=== PATIENT | male | born 1980 | race Caucasian/White ===

== ENCOUNTER → 2017-01-11 | Outpatient (CLI) | payer BC ==
[2017-01-11 08:26] LABS: BASO % 0.7 % (0.0-1.0); EOS # 0.2 K/mm3 (0.0-0.50); EOS % 2.4 % (0.0-3.0); LARGE UNSTAINED CELL # 0.1 K/mm3 (0.0-0.4); LARGE UNSTAINED CELL % 1.2 % (0.0-4.0); LYMPH # 1.6 K/mm3 (1.5-4.5); LYMPH % 23.1 % (24.0-44.0); MEAN CORPUSCULAR HEMOGLOBIN 28.3 pg (27.0-33.0); MEAN CORPUSCULAR HGB CONC 34.6 g/dl (32.0-36.5); MONO # 0.5 K/mm3 (0.0-0.8); MONO % 7.5 % (0.0-5.0); NEUTROPHILS # 4.3 K/mm3 (1.8-7.7); NEUTROPHILS % 65.1 % (36.0-66.0); PLATELET COUNT, AUTOMATED 270 k/mm3 (150-450); RED CELL DISTRIBUTION WIDTH 12.2 % (11.5-14.5); WHITE BLOOD COUNT 6.6 K/mm3 (4.0-10.0)
[2017-01-11 09:06] LABS: ALBUMIN/GLOBULIN RATIO 1.29 (1.00-1.93); ALKALINE PHOSPHATASE 61 U/L (45-117); ALT/SGPT 75 U/L (12-78); ANION GAP 8 MEQ/L (8-16); AST/SGOT 24 U/L (15-37); BILIRUBIN,TOTAL 0.3 MG/DL (0.2-1.0); BLOOD UREA NITROGEN 10 MG/DL (7-18); CALCIUM LEVEL 8.7 MG/DL (8.5-10.1); CARBON DIOXIDE LEVEL 27 MEQ/L (21-32); CHLORIDE LEVEL 107 MEQ/L (98-107); CHOLESTEROL LEVEL 183 MG/DL (<200); CREATININE FOR GFR 0.83 MG/DL (0.70-1.30); FREE T4 1.48 NG/DL (0.76-1.46); GLOMERULAR FILTRATION RATE > 60.0 (>60); GLUCOSE, FASTING 94 MG/DL (70-105); POTASSIUM SERUM 4.1 MEQ/L (3.5-5.1); SODIUM LEVEL 142 MEQ/L (136-145); TOTAL PROTEIN 7.1 GM/DL (6.4-8.2); TRIGLYCERIDES LEVEL 134 MG/DL (<150)
== END ==
LOC: M LAB 07:51
PROVIDERS: ATTEND Physician Assistant Medical
DX: Z00.00 Encounter for general adult medical examination without abnormal findings (principal); R00.2 Palpitations; I10 Essential (primary) hypertension

== ENCOUNTER → 2017-04-10 | Outpatient (CLI) | payer BC ==
[2017-04-10 15:10] LABS: FREE T4 1.1 NG/DL (0.76-1.46)
== END ==
LOC: M LAB 07:38
PROVIDERS: ATTEND Internal Medicine
DX: E89.0 Postprocedural hypothyroidism (principal)

== ENCOUNTER → 2017-04-10 | Outpatient (CLI) | payer BC ==
[2017-04-10 08:56] LABS: FREE T4 1.07 NG/DL (0.76-1.46)
== END ==
LOC: M LAB 07:34
PROVIDERS: ATTEND Internal Medicine Endocrinology, Diabetes & Metabolism
DX: E89.0 Postprocedural hypothyroidism (principal)

== ENCOUNTER → 2017-07-30 | Outpatient (CLI) | payer BC ==
[2017-07-30 09:10] LABS: FREE T4 1.64 NG/DL (0.76-1.46)
== END ==
LOC: M LAB 07:36
PROVIDERS: ATTEND Internal Medicine Endocrinology, Diabetes & Metabolism
DX: E89.0 Postprocedural hypothyroidism (principal)

== ENCOUNTER → 2018-08-25 | Outpatient (CLI) | payer BC ==
[2018-08-25 19:30] LABS: FREE T4 1.33 NG/DL (0.76-1.46)
== END ==
LOC: M LAB 18:22
DX: E89.0 Postprocedural hypothyroidism (principal)
CPT/HCPCS: 84443

== ENCOUNTER → 2019-08-26 | Outpatient (CLI) | payer BC ==
[2019-08-26 08:46] LABS: FREE T4 1.46 NG/DL (0.76-1.46); THYROID STIMULATING HORMONE 0.239 uIU/ML (0.358-3.740)
== END ==
LOC: M LAB 07:31
PROVIDERS: ATTEND Nurse Practitioner Family
DX: E89.0 Postprocedural hypothyroidism (principal)

== ENCOUNTER → 2019-12-31 | Outpatient (CLI) | payer BC ==
[2019-12-31 09:17] LABS: FREE T4 1.48 NG/DL (0.76-1.46); THYROID STIMULATING HORMONE 0.961 uIU/ML (0.358-3.740)
== END ==
LOC: M LAB 07:29
PROVIDERS: ATTEND Nurse Practitioner Family
DX: E89.0 Postprocedural hypothyroidism (principal)

== ENCOUNTER → 2020-06-28 | Outpatient (CLI) | payer BC ==
[2020-09-20 07:43] LABS: THYROID STIMULATING HORMONE SEE SEPARATE REPORT
== END ==
LOC: M LAB 07:10
PROVIDERS: ATTEND Nurse Practitioner Family
DX: E89.0 Postprocedural hypothyroidism (principal)

== ENCOUNTER → 2021-08-14 | Outpatient (CLI) | payer BC ==
[2021-08-14 08:47] LABS: FREE T4 1.38 NG/DL (0.76-1.46); THYROID STIMULATING HORMONE 1.16 uIU/ML (0.358-3.740)
== END ==
LOC: M LAB 07:26
PROVIDERS: ATTEND Nurse Practitioner Family
DX: E89.0 Postprocedural hypothyroidism (principal)

== ENCOUNTER → 2021-08-14 | Outpatient (CLI) | payer BC ==
[2021-08-14 08:41] LABS: ALBUMIN 3.8 GM/DL (3.2-5.2); ALT/SGPT 77 U/L (12-78); BILIRUBIN,TOTAL 0.6 MG/DL (0.2-1.0); BLOOD UREA NITROGEN 11 MG/DL (7-18); CALCIUM LEVEL 8.9 MG/DL (8.5-10.1); CARBON DIOXIDE LEVEL 27 MEQ/L (21-32); CHLORIDE LEVEL 106 MEQ/L (98-107); CHOLESTEROL LEVEL 201 MG/DL (<200); CHOLESTEROL RISK RATIO 5.742 (<5); CREATININE FOR GFR 0.77 MG/DL (0.70-1.30); GLOMERULAR FILTRATION RATE > 60.0 (>60); GLUCOSE, FASTING 102 MG/DL (70-100); HDL CHOLESTEROL 35 MG/DL (>40); LDL CHOLESTEROL 121 MG/DL (<100); NON-HDL-C 166 MG/DL; POTASSIUM SERUM 4.2 MEQ/L (3.5-5.1); SODIUM LEVEL 138 MEQ/L (136-145); TOTAL PROTEIN 7.5 GM/DL (6.4-8.2); TRIGLYCERIDES LEVEL 223 MG/DL (<150)
== END ==
LOC: M LAB 07:22
PROVIDERS: ATTEND Nurse Practitioner Family
DX: Z00.00 Encounter for general adult medical examination without abnormal findings (principal)

== ENCOUNTER → 2022-09-12 | Outpatient (CLI) | payer OTHER ==
[2022-09-12 10:11] LABS: ALT/SGPT 31 U/L (12-78); BILIRUBIN,TOTAL 0.5 MG/DL (0.2-1.0); BLOOD UREA NITROGEN 12 MG/DL (7-18); CALCIUM LEVEL 9.3 MG/DL (8.5-10.1); CARBON DIOXIDE LEVEL 29 MEQ/L (21-32); CHLORIDE LEVEL 104 MEQ/L (98-107); CHOLESTEROL LEVEL 198 MG/DL (<200); CREATININE FOR GFR 0.82 MG/DL (0.70-1.30); GLOMERULAR FILTRATION RATE > 60.0 (>60); GLUCOSE, FASTING 119 MG/DL (70-100); POTASSIUM SERUM 4.7 MEQ/L (3.5-5.1); SODIUM LEVEL 136 MEQ/L (136-145); TRIGLYCERIDES LEVEL 124 MG/DL (<150)
[2022-09-12 10:12] LABS: ALBUMIN 3.9 GM/DL (3.2-5.2); CHOLESTEROL RISK RATIO 4.714 (<5); HDL CHOLESTEROL 42 MG/DL (>40); LDL CHOLESTEROL 131 MG/DL (<100); NON-HDL-C 156 MG/DL; TOTAL PROTEIN 7.4 GM/DL (6.4-8.2)
== END ==
LOC: M LAB 08:42
PROVIDERS: ATTEND Nurse Practitioner Family
DX: E78.2 Mixed hyperlipidemia (principal)

== ENCOUNTER → 2022-09-12 | Outpatient (CLI) | payer OTHER ==
[2022-09-12 10:20] LABS: FREE T4 1.59 NG/DL (0.76-1.46); THYROID STIMULATING HORMONE 0.895 uIU/ML (0.358-3.740)
== END ==
LOC: M LAB 08:36
PROVIDERS: ATTEND Nurse Practitioner Family
DX: E89.0 Postprocedural hypothyroidism (principal)

== ENCOUNTER → 2024-04-21 | Outpatient (CLI) | payer OTHER ==
[2024-04-21 08:43] LABS: ALBUMIN 3.7 G/DL (3.2-5.2); ALKALINE PHOSPHATASE 62 U/L (46-116); ALT/SGPT 29 U/L (7.0-40); AST/SGOT 14 U/L (<34); BILIRUBIN,TOTAL 0.6 MG/DL (0.3-1.2); BLOOD UREA NITROGEN 14 MG/DL (9-23); CALCIUM LEVEL 8.8 MG/DL (8.5-10.1); CARBON DIOXIDE LEVEL 27 MMOL/L (20-31); CHLORIDE LEVEL 107 MMOL/L (98-107); CHOLESTEROL LEVEL 188 MG/DL (<200); CHOLESTEROL RISK RATIO 6.12 (<5); CREATININE FOR GFR 0.75 MG/DL (0.70-1.30); GLOMERULAR FILTRATION RATE > 60.0 (>60); GLUCOSE, FASTING 106 MG/DL (60-100); HDL CHOLESTEROL 30.7 MG/DL (>40); LDL CHOLESTEROL 124.5 MG/DL (<100); NON-HDL-C 157.3 MG/DL; POTASSIUM SERUM 4.2 MMOL/L (3.5-5.1); SODIUM LEVEL 139 MMOL/L (136-145); TOTAL PROTEIN 6.9 G/DL (5.7-8.2); TRIGLYCERIDES LEVEL 164 MG/DL (<150)
[2024-04-21 08:45] LABS: FREE T4 1.64 NG/DL (0.89-1.76); THYROID STIMULATING HORMONE 0.174 uIU/ML (0.55-4.78)
== END ==
LOC: M LAB 07:23
PROVIDERS: ATTEND Nurse Practitioner Family
DX: E89.0 Postprocedural hypothyroidism (principal); E78.2 Mixed hyperlipidemia